=== PATIENT | female | born 1960 | race African-American/Black ===

== ENCOUNTER 2022-04-21 11:06 | Emergency (ER) | payer OTHER ==
[~2022-04-21] VITALS: Ht 167.6 cm; Wt 101.0 kg
[2022-04-21 11:29] VITALS: BP 206/98
== END 2022-04-21 16:57 | disposition left against medical advice (07) ==
LOC: ER 11:06
DX: Z53.21 Procedure and treatment not carried out due to patient leaving prior to being seen by health care provider (principal)